=== PATIENT | male | born 1995 | race African-American/Black ===

== ENCOUNTER 2025-02-26 11:46 | Emergency (ER) | payer OTHER, BC ==
[2025-02-26] MEDS ORDERED: Sodium Chloride 0.9% 10 ML Syringe FLUSH PRN (12:11)
[2025-02-26] MEDS ORDERED: Naloxone 0.4 MG/ML SDV IVPUSH PRN ×2 (12:12→13:46)
[2025-02-26] MEDS: Sodium Chloride 0.9% 10 ML Syringe FLUSH PRN (12:23)
[2025-02-26] MEDS: Ondansetron 4 MG/2 ML SDV IVPUSH ONE (12:23)
[2025-02-26] MEDS: Iopamidol 612 MG/ML 100 ML Bottle IVPUSH ONE (12:23)
[2025-02-26 12:58] LABS: BASOPHILS ABSOLUTE AUTO 0.0 K/mm3 (0.0-0.2); BASOPHILS PERCENT AUTO 0.5 % (0.0-1.0); EOSINOPHILS ABSOLUTE AUTO 0.1 K/mm3 (0.0-0.4); EOSINOPHILS PERCENT AUTO 2.4 % (0.0-6.0); IMMATURE GRAN ABSOLUTE AUTO 0.01 K/mm3 (0.00-0.05); IMMATURE GRAN PERCENT AUTO 0.2 % (0.0-0.4); LYMPHOCYTES ABSOLUTE AUTO 1.6 K/mm3 (1.0-4.8); LYMPHOCYTES PERCENT AUTO 26.7 % (24.0-44.0); MEAN PLATELET VOLUME 9.7 fl (9.4-12.4); MONOCYTES ABSOLUTE AUTO 0.5 K/mm3 (0.0-0.8); MONOCYTES PERCENT AUTO 7.7 % (0.0-8.0); NEUTROPHILS ABSOLUTE AUTO 3.7 K/mm3 (1.8-7.7); NEUTROPHILS PERCENT AUTO 62.5 % (41.0-71.0); NRBC ABSOLUTE 0.00 (0.00-0.02); NRBC PERCENT 0.0 % (0.0-0.2); PLATELET COUNT,PLT 198 K/mm3 (150-400); RED BLOOD CELL COUNT 5.83 M/mm3 (4.52-5.90); WHITE BLOOD CELL COUNT,WBC 5.88 K/mm3 (3.9-11.3)
[2025-02-26 13:05] LABS: BUPRENORPHINE SCREEN,URINE NEGATIVE (CUTOFF=10); METHADONE SCREEN, URINE NEGATIVE (CUT0FF=200); METHAMPHETAMINES SCREEN, URINE NEGATIVE (CUTOFF=500); OXYCODONE SCREEN,URINE NEGATIVE (CUT0FF=100); THC SCREEN,URINE 20 NG/ML NEGATIVE (CUTOFF=50)
[2025-02-26 13:06] LABS: AMPHETAMINES SCREEN, URINE NEGATIVE (CUTOFF=500)
[2025-02-26 13:21] LABS: LACTIC ACID 1.3 mmol/L (0.4-2.0)
[2025-02-26 13:34] LABS: A/G RATIO 1.2 (1-2); ALANINE AMINOTRANSFERASE,ALT 62 U/L (16-63); ASPARTATE AMNIOTRANSFERASE,AST 79 U/L (15-37); BILIRUBIN TOTAL 1.8 mg/dL (0.2-1.0); BLOOD UREA NITROGEN,BUN 15 mg/dL (7-18); CARBON DIOXIDE,CO2 28 mEq/L (21-32); CHLORIDE,CL 104 mEq/L (98-107); CREATININE 1.0 mg/dL (0.7-1.3); ESTIMATED GFR 104 mL/min (>60); GLUCOSE RANDOM 83 mg/dL (70-99); POTASSIUM,K 4.1 mEq/L (3.5-5.1); PROTEIN TOTAL,TP 7.1 g/dl (6.4-8.2); SODIUM,NA 140 mEq/L (136-145); TROPONIN I HIGH SENSITIVITY 15 pg/mL (<=76)
[2025-02-26 13:38] LABS: ETHANOL BLOOD MEDICAL 0.00 gm% (0.00)
== END 2025-02-26 17:30 | disposition home or self-care (01) ==
LOC: JD.ED 11:46 → EDBD 11:46 → JD.ED 17:30
DX: S06.0XAA Concussion with loss of consciousness status unknown, initial encounter (principal); S01.01XA Laceration without foreign body of scalp, initial encounter; Z79.899 Other long term (current) drug therapy; W22.11XA Striking against or struck by driver side automobile airbag, initial encounter
CPT/HCPCS: 12002; 36415; 70450; 71045; 71260; 72125; 72128; 72131; 72170; 73562; 74177; 80053; 80306; 80307; 83605; 84484; 85025; 86850; 86900; 86901; 93005; 96374; 96375; 96376; 99285; J2003; J2270; J2405; Q9967; 93010; 99284

== ENCOUNTER 2025-03-03 10:38 | Emergency (ER) | payer OTHER, BC | END 2025-03-03 12:11 | disposition home or self-care (01) | LOC: JD.ED 10:38 | DX: S01.01XD Laceration without foreign body of scalp, subsequent encounter (principal); Z48.02 Encounter for removal of sutures; Z79.899 Other long term (current) drug therapy; V89.2XXD Person injured in unspecified motor-vehicle accident, traffic, subsequent encounter | CPT/HCPCS: 99283; 99284 ==